=== PATIENT | male | born 1965 | race Hispanic/Latino ===

== ENCOUNTER 2020-10-12 07:04 | Emergency (ER) | payer BC ==
[~2020-10-12] VITALS: Ht 165.1 cm; Wt 80.7 kg
[2020-10-12 07:46] VITALS: BP 165/95
[2020-10-12 09:24] VITALS: BP 135/83
== END 2020-10-12 09:24 | disposition home or self-care (01) ==
LOC: EDH 07:04
DX: S80.12XA Contusion of left lower leg, initial encounter (principal); E11.9 Type 2 diabetes mellitus without complications; Z86.73 Personal history of transient ischemic attack (TIA), and cerebral infarction without residual deficits; X58.XXXA Exposure to other specified factors, initial encounter; Y93.89 Activity, other specified; Y92.89 Other specified places as the place of occurrence of the external cause; Y99.8 Other external cause status
CPT/HCPCS: 76882; 93971

== ENCOUNTER 2021-07-20 06:09 | Emergency (ER) | payer BC ==
[~2021-07-20] VITALS: Ht 165.1 cm; Wt 80.7 kg
[2021-07-20 06:23] LABS: BASOPHILS % (AUTO) 0.9 % (0.0-5.0); EOSINOPHILS % (AUTO) 1.9 % (0.0-8.0); HEMATOCRIT 45.7 % (42-54); LYMPHOCYTES % (AUTO) 21.7 % (21.0-51.0); MEAN CORPUSCULAR HEMOGLOBIN 31.2 pg (27.0-33.0); MEAN CORPUSCULAR HGB CONC 36.5 g/dL (32.0-36.0); MEAN CORPUSCULAR VOLUME 85.4 fL (79-99); MONOCYTES % (AUTO) 9.3 % (3.0-13.0); NEUTROPHILS % (AUTO) 65.4 % (40.0-77.0); PLATELET COUNT (AUTO) 200 K/uL (130-400); RED BLOOD CELL COUNT(AUTO) 5.35 MIL/uL (4.50-6.20); WHITE BLOOD COUNT (AUTO) 7.6 K/uL (4.8-10.8)
[2021-07-20 06:48] LABS: ALBUMIN 3.9 g/dL (3.5-5.0); BILIRUBIN,TOTAL 0.6 mg/dL (0.2-1.0); CREATININE 0.8 mg/dL (0.5-1.5); POTASSIUM 4.1 mmol/L (3.5-5.1); TOTAL PROTEIN, SERUM 6.8 g/dL (6.0-8.3)
[2021-07-20 11:23] VITALS: BP 144/81
[2021-07-20] MEDS ORDERED: FLUT16H NASAL (12:11)
[2021-07-20] MEDS ORDERED: LORA10TA7 PO (12:11)
== END 2021-07-20 12:27 | disposition home or self-care (01) ==
LOC: EDH 06:09
DX: J32.2 Chronic ethmoidal sinusitis (principal); R03.0 Elevated blood-pressure reading, without diagnosis of hypertension; R42 Dizziness and giddiness; E11.9 Type 2 diabetes mellitus without complications; I10 Essential (primary) hypertension; Z86.73 Personal history of transient ischemic attack (TIA), and cerebral infarction without residual deficits
CPT/HCPCS: 36415; 70450; 70551; 71045; 80053; 83690; 84484; 85025; 93005

== ENCOUNTER 2024-03-12 07:52 | Emergency (ER) | payer BC, OTHER ==
[~2024-03-12] VITALS: Ht 167.6 cm; Wt 81.6 kg
[~2024-03-12 07:52] MED LIST: FLUT16H NASAL; LORA10TA7 PO
[2024-03-12] MEDS ORDERED: dexaMETHasone SOD PHOSPHATE 4 MG/ML 1ML VIAL IM ONE (08:30)
--- NOTE | 2024-03-12 08:34 | HMCIMG ---
CHEST 1VW HISTORY: Shortness of breath COMPARISON: 07/20/2021 FINDINGS: A frontal projection of the chest was obtained. Bibasilar linear atelectasis changes are seen. No acute pulmonary infiltrates is seen. The heart is borderline enlarged. All the lines and tubes are again seen in place. No evidence of aortic calcification is seen. IMPRESSION: 1. No acute pulmonary infiltrate is seen. Bibasilar linear atelectasis changes
[2024-03-12 08:38] LABS: BASOPHILS # (AUTO) 0.02 K/uL (0.00-0.20); BASOPHILS % (AUTO) 0.2 % (0.0-5.0); HEMATOCRIT 44.1 % (42-54); IMMATURE GRANULOCYTE ABSOLUTE 0.04 K/uL (0-1); LYMPHOCYTES # (AUTO) 0.4 K/uL (1.0-4.8); LYMPHOCYTES % (AUTO) 4.7 % (21.0-51.0); MEAN CORPUSCULAR HEMOGLOBIN 31.2 pg (27.0-33.0); MEAN CORPUSCULAR HGB CONC 34.9 g/dL (32.0-36.0); MEAN CORPUSCULAR VOLUME 89.5 fL (79-99); MONOCYTES # (AUTO) 1.1 K/uL (0.1-1.0); MONOCYTES % (AUTO) 12.4 % (3.0-13.0); NEUTROPHILS # (AUTO) 7.2 K/uL (1.8-7.7); NEUTROPHILS % (AUTO) 82.2 % (40.0-77.0); PLATELET COUNT (AUTO) 137 K/uL (130-400); RED BLOOD CELL COUNT(AUTO) 4.93 MIL/uL (4.50-6.20); RED CELL DISTRIBUTION WIDTH 12.2 % (11.0-15.5); WHITE BLOOD COUNT (AUTO) 8.7 K/uL (4.8-10.8)
[2024-03-12] MEDS: 0.9%NACL 1000ML 1,000 ML IV ONE (08:40)
[2024-03-12 08:45] LABS: POTASSIUM 4.3 mmol/L (3.5-5.1)
[2024-03-12 08:45] LABS: COVID19 (SARS ANTIGEN RAPID) PRESUMPTIVE NEGATIVE (NEGATIVE); INFLUENZA TYPE A Negative For Type A (NEGATIVE); INFLUENZA TYPE B Negative For Type B (NEGATIVE)
[2024-03-12] MEDS: dexaMETHasone SOD PHOSPHATE 4 MG/ML 1ML VIAL IV ONE (08:52)
[2024-03-12 09:03] LABS: B-TYPE NATRIURETIC PEPTIDE 12 pg/mL (0-100)
--- NOTE | 2024-03-12 09:14 | EKG ---
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
[2024-03-12 09:24] VITALS: PULSE 104; RESP 20
[2024-03-12] MEDS: IpraTROPium/alBUTERol SULFATE 3 ML SOLUTION IH ONE (09:24)
[2024-03-12] MEDS ORDERED: AZIT250T9 PO (10:09)
[2024-03-12] MEDS ORDERED: ALBUHFA IH (10:09)
--- NOTE | 2024-03-12 10:09 | ERN ---
ED Note History of Present Illness Stated Complaint: COUGH, CONGESTION, DIZZINESS Chief Complaint: Cough Time Seen by MD: 07:54 Dictation: 59-year-old male presents to the ED for evaluation of cough onset 2 days ago. Positive for nasal congestion, dizziness, and headache, but denies any other associated symptoms at this time. Patient states symptoms have been worsening. Allergies: Coded Allergies: No Known Allergies (Unverified Allergy, Unknown, 10/12/20) Home Meds Active Scripts Albuterol Sulfate (Ventolin Hfa/Proventil Hfa/Proair Hfa) 90 Mcg Puff, 1-2 PUFF IH Q4H PRN for SHORTNESS OF BREATH for 5 Days, #1 INH 0 Refills PHARMACY TO DISPENSE 1 INHALER FOR USE Prov:DERRICK BEAVERS MD 03/12/24 Azithromycin (Azithromycin) 250 Mg Tablet, 1 TAB PO AD for 5 Days, #6 TAB 0 Refills 2 the first day followed by 1 for days 2-5 Prov:DERRICK BEAVERS MD 03/12/24 Loratadine (Loratadine) 10 Mg Tablet, 10 MG PO DAILY for 30 Days, #30 TAB Prov:SAM RODAS MD 07/20/21 Fluticasone Propionate (Flonase Nasal [place]) 50 Mcg/[place], 50 MCG NASAL BID for 10 Days, #30 SPRAY Prov:SAM RODAS MD 07/20/21 Past Medical History Past Medical History: CVA, Diabetes-Type II, Hypertension, TIA Additional Past Medical Hx: History of CVA in the past Surgical History: None Surgical History Other: LEFT LOWER LEG Family History: HTN Social History: Negative, Lives with family Review of System Dictation Constitutional: Negative for fever,chills, and weight loss Eyes: Negative for injury, pain,redness, and discharge ENT: Positive for nasal congestion Negative for injury,pain or swelling Cardiovascular: Negative for chest pain, palpitations, and edema Respiratory: Positive for cough Negative for shortness of breath, and wheezing, Abdomen/GI: Negative for abdominal pain, nausea, vomiting, diarrhea, and constipation Back: Negative for injury and pain : Negative for injury, bleeding and discharge MS/Extremity: Negative for injury and deformity Skin: Negative for rash, and discoloration Neuro: Positive for headache, dizziness Negative for weakness, numbness, tingling, and seizure Psych: Negative for suicide ideation, homicidal ideation, and hallucinations Initial Vital Sign VS Vital Signs Date Time Temp Pulse Resp B/P (MAP) Pulse Ox O2 Delivery O2 Flow Rate FiO2 03/12/24 07:53 99.0 118 18 142/73 97 Room Air 0 03/12/24 10:19 21 Physical Exam Dictation General: awake, alert, NAD Head/Face: Normocephalic, atraumatic Eyes: PERRL, EOMI, vision at baseline ENT: oral cavity clear, TMs clear, nasal congestion Neck: Trachea midline, supple, no nuchal rigidity Cardiovascular: RRR, normal S1/S2, No MRGs, no JVD Respiratory: CTAB, no respiratory distress, wheezing Abdomen: Soft, non-tender, non-distended, normal bowel sounds, no guarding or rebound. Skin: Warm, dry, normal turgor, no rash MS/Extremity: Pulses equal, no cyanosis, neurovascular intact, FROM Neuro: COAx4, GCS 15, strength 5/5, CN 2-12 intact, normal cerebellar exam, normal gait, Psych: Normal behavior, mood, and affect normal Results (Laboratory/Radiology) Laboratory/Radiology Laboratory Tests Test 03/12/24 02:05 03/12/24 08:30 03/12/24 09:21 Influenza Type A Antigen Negative For Type A Influenza Type B Antigen Negative For Type B SARS-CoV-2 Antigen (Rapid) PRESUMPTIVE NEGATIVE White Blood Count 8.7 K/uL (4.8-10.8) Red Blood Count 4.93 MIL/uL (4.50-6.20) Hemoglobin 15.4 g/dL (14.0-18.0) Hematocrit 44.1 % (42-54) Mean Corpuscular Volume 89.5 fL (79-99) Mean Corpuscular Hemoglobin 31.2 pg (27.0-33.0) Mean Corpuscular Hemoglobin Concent 34.9 g/dL (32.0-36.0) Red Cell Distribution Width 12.2 % (11.0-15.5) Platelet Count 137 K/uL (130-400) Mean Platelet Volume 10.0 fL (7.5-10.5) Immature Granulocyte % (Auto) 0.5 % (0-1) Neutrophils (%) (Auto) 82.2 % (40.0-77.0) H Lymphocytes (%) (Auto) 4.7 % (21.0-51.0) L Monocytes (%) (Auto) 12.4 % (3.0-13.0) Eosinophils (%) (Auto) 0.0 % (0.0-8.0) Basophils (%) (Auto) 0.2 % (0.0-5.0) Neutrophils # (Auto) 7.2 K/uL (1.8-7.7) Lymphocytes # (Auto) 0.4 K/uL (1.0-4.8) L Monocytes # (Auto) 1.1 K/uL (0.1-1.0) H Eosinophils # (Auto) 0.00 K/uL (0.00-0.70) Basophils # (Auto) 0.02 K/uL (0.00-0.20) Absolute Immature Granulocyte (auto 0.04 K/uL (0-1) Nucleated Red Blood Cells 0.0 % (0.0-0.19) White Cell Morphology Comment See comments Sodium Level 139 mmol/L (136-145) Potassium Level 4.3 mmol/L (3.5-5.1) Chloride Level 100 mmol/L (101-111) L Carbon Dioxide Level 19 mmol/L (21-32) L Blood Urea Nitrogen 20 mg/dL (7-18) H Creatinine 1.0 mg/dL (0.5-1.3) Glomerular Filtration Rate Calc 88 mL/min (>90) Random Glucose 152 mg/dL (70-105) H Total Calcium 9.2 mg/dL (8.5-10.1) Troponin I High Sensitivity 85 ng/L (4-75) *H 76 ng/L (4-75) *H B-Type Natriuretic Peptide 12 pg/mL (0-100) Labs Reviewed?: Yes EKG Comment: EKG 03/12/2024 time 8:06 a.m. ventricular rate 111, MS 159, QRS D 100, QT 328. Sinus tachycardia, probable left atrial enlargement, inferior infarct, age indeterminate. No STEMI X-RAY Comment: REASON: sob ORDERING PHYSICIAN: DERRICK BEAVERS MD PROCEDURE: CXR1VW - CHEST 1VW CHEST 1VW HISTORY: Shortness of breath COMPARISON: 07/20/2021 FINDINGS: A frontal projection of the chest was obtained. Bibasilar linear atelectasis changes are seen. No acute pulmonary infiltrates is seen. The heart is borderline enlarged. All the lines and tubes are again seen in place. No evidence of aortic calcification is seen. IMPRESSION: 1. No acute pulmonary infiltrate is seen. Bibasilar linear atelectasis changes DICTATED BY: JEANA LAURENT MD DATE: 03/12/24 0832 ED Course ED Course Orders Procedure Category Date Status Time Influenza Type A & B, LAB 03/12/24 Complete Rapid 07:55 12 Lead Ekg Tracing- EKG 03/12/24 Complete Technical 07:55 Chest 1vw RAD 03/12/24 Resulted 07:55 Covid19 (Sars Antigen LAB 03/12/24 Complete Rapid) 07:55 Dexamethasone 4mg/Ml PHA 03/12/24 Complete 1ml Vial (Dexametha 08:30 Ipratropium/Albuterol PHA 03/12/24 Complete Neb (Duoneb) 08:30 B-Type Natriuretic LAB 03/12/24 Complete Peptide 08:21 Basic Metabolic Panel LAB 03/12/24 Complete 08:21 Cbc With Differential LAB 03/12/24 Complete 08:21 Troponin I High LAB 03/12/24 Complete Sensitivity 08:21 0.9%Nacl 1000ml (Ns PHA 03/12/24 Complete 1000ml) 08:30 Dexamethasone 4mg/Ml PHA 03/12/24 Complete 1ml Vial (Dexametha 09:00 Troponin I High LAB 03/12/24 Complete Sensitivity 09:12 Current Medications Medications (Trade) Dose Ordered Sig/Red Route PRN Reason Start Time Stop Time Status Last Admin Dose Admin Albuterol (DUOneb) 1 udvial ONCE ONCE IH 03/12/24 08:30 03/12/24 08:31 DC 03/12/24 09:24 Dexamethasone Sodium Phosphate (dexaMETHasone 4MG/ML 1ML VIAL) 10 mg ONCE ONCE IM 03/12/24 08:30 03/12/24 08:44 DC Dexamethasone Sodium Phosphate (dexaMETHasone 4MG/ML 1ML VIAL) 10 mg ONCE ONCE IV 03/12/24 09:00 03/12/24 09:01 DC 03/12/24 08:52 Sodium Chloride 1,000 ml @ 0 mls/hr ONCE ONCE IV 03/12/24 08:30 03/12/24 08:31 DC 03/12/24 08:40 Vital Signs Date Time Temp Pulse Resp B/P (MAP) Pulse Ox O2 Delivery O2 Flow Rate FiO2 03/12/24 10:19 98.4 100 16 111/63 98 Room Air* 0 21 03/12/24 09:24 104 20 03/12/24 07:53 99.0 118 18 142/73 97 Room Air 0 Medical Decision Making MDM MDM: Differential diagnosis: Acute bronchitis, viral syndrome Previous outside records reviewed: Old ER visits. Need for hospitalization: Patient does not meet criteria for hospitalization. Need for emergency major/minor surgery: No Patient's prior external medical records from other ER visits were reviewed by me as indicated. Prior testing and results from previous visits were reviewed. Prior tests were taken into account with medical decision making and resource utilization, independent historian/historians were used to obtain complete medical history. I independently interpreted the test that were performed, results were reviewed by me and considered findings on radiology if ordered. Medical management and examination interpretation discussions were had by me with other qualified healthcare professionals as indicated for the patient's care. DX & DISP Disposition: Discharge Departure Impression: Primary Impression: Acute bronchitis Condition: Stable Scripts Albuterol Sulfate (Ventolin Hfa/Proventil Hfa/Proair Hfa) 90 Mcg Puff 1-2 PUFF IH Q4H PRN for SHORTNESS OF BREATH for 5 Days, #1 INH 0 Refills PHARMACY TO DISPENSE 1 INHALER FOR USE Prov: DERRICK BEAVERS MD 03/12/24 Azithromycin (Azithromycin) 250 Mg Tablet 1 TAB PO AD for 5 Days, #6 TAB 0 Refills 2 the first day followed by 1 for days 2-5 Prov: DERRICK BEAVERS MD 03/12/24 Referrals: MATT RODRIGUEZ MD (PCP) DERRICK BEAVERS MD Mar 12, 2024 10:09
[2024-03-12 10:19] VITALS: BP 111/63; PULSE 100; RESP 16; TEMP 98.5; O2SAT 98
== END 2024-03-12 10:44 | disposition home or self-care (01) ==
LOC: EDH 07:52
DX: J20.9 Acute bronchitis, unspecified (principal); E11.9 Type 2 diabetes mellitus without complications; I10 Essential (primary) hypertension; Z86.73 Personal history of transient ischemic attack (TIA), and cerebral infarction without residual deficits; Z20.822 Contact with and (suspected) exposure to COVID-19
CPT/HCPCS: 99285; 96374; 71045; 96361; 87426; 84484 ×2; 80048; 83880; 85025; 87804 ×2; 36415; 93005; 94640; J1100; J7030